=== PATIENT | female | born 1990 ===

== ENCOUNTER 2018-10-13 07:05 | Inpatient (IN) | payer OTHER ==
[~2018-10-13] VITALS: Ht 165.1 cm; Wt 68.0 kg
[2018-10-13] MEDS ORDERED: PRENATAL TABLE1 EAC2 PO (08:42)
== END 2018-10-14 08:04 | disposition home or self-care (01) | DRG 779 ==
LOC: LDR 07:05
PROC: 10A07ZX Abortion of Products of Conception, Abortifacient, Via Natural or Artificial Opening (ICD-10-PCS; principal; 2018-10-13)
DX: Z33.2 Encounter for elective termination of pregnancy (principal)

== ENCOUNTER 2021-07-18 13:36 | Outpatient (CLI) | payer OTHER ==
[~2021-07-18 13:36] MED LIST: PRENATAL TABLE1 EAC2 PO
== END 2021-07-18 14:36 | disposition home or self-care (01) ==
LOC: PRENATAL 13:36
PROVIDERS: ATTEND Obstetrics & Gynecology Maternal & Fetal Medicine
DX: Z36.89 Encounter for other specified antenatal screening (principal); O36.80X1 Pregnancy with inconclusive fetal viability, fetus 1; Z3A.13 13 weeks gestation of pregnancy

== ENCOUNTER 2021-08-26 18:22 | Emergency (ER) | payer OTHER ==
[~2021-08-26] VITALS: Ht 162.6 cm; Wt 65.8 kg
== END 2021-08-26 21:48 | disposition home or self-care (01) ==
LOC: ER 18:22
DX: O26.892 Other specified pregnancy related conditions, second trimester (principal); N89.8 Other specified noninflammatory disorders of vagina; R10.2 Pelvic and perineal pain; Z3A.18 18 weeks gestation of pregnancy

== ENCOUNTER 2021-09-08 08:09 | Outpatient (CLI) | payer OTHER | END 2021-09-08 09:30 | disposition home or self-care (01) | LOC: PRENATAL 08:09 | PROVIDERS: ATTEND Obstetrics & Gynecology Maternal & Fetal Medicine | DX: O35.0XX1 Maternal care for (suspected) central nervous system malformation in fetus, fetus 1 (principal); O35.3XX1 Maternal care for (suspected) damage to fetus from viral disease in mother, fetus 1; O98.512 Other viral diseases complicating pregnancy, second trimester; O99.891 Other specified diseases and conditions complicating pregnancy; Z36.89 Encounter for other specified antenatal screening; Z3A.20 20 weeks gestation of pregnancy ==

== ENCOUNTER 2021-09-12 13:51 | Outpatient (CLI) | payer OTHER ==
[2021-09-12] MEDS ORDERED: OBSTETRIX (15:08)
== END 2021-09-13 15:30 | disposition home or self-care (01) ==
LOC: OBS/DEL 13:51
PROVIDERS: ATTEND Obstetrics & Gynecology
DX: O26.842 Uterine size-date discrepancy, second trimester (principal); O60.02 Preterm labor without delivery, second trimester; O26.892 Other specified pregnancy related conditions, second trimester; R10.2 Pelvic and perineal pain; Z3A.20 20 weeks gestation of pregnancy

== ENCOUNTER 2022-01-14 19:43 | Inpatient (IN) | payer OTHER ==
[~2022-01-14] VITALS: Ht 165.1 cm; Wt 89.4 kg
[~2022-01-14 19:43] MED LIST changes: +OBSTETRIX
[2022-01-14] MEDS ORDERED: PRENATAL TABLE1 EAC1 PO (20:52)
== END 2022-01-17 12:24 | disposition home or self-care (01) | DRG 807 ==
LOC: OBS/DEL 19:43 → SURG-SUITE 01-15 02:03 → LDR 01-15 02:03 → SURG-SUITE 01-15 08:55
PROVIDERS: ADMIT Obstetrics & Gynecology; ATTEND Obstetrics & Gynecology
PROC: 10E0XZZ Delivery of Products of Conception, External Approach (ICD-10-PCS; principal; 2022-01-15)
PROC: 4A1HXCZ Monitoring of Products of Conception, Cardiac Rate, External Approach (ICD-10-PCS; 2022-01-16)
PROC: 0HQ9XZZ Repair Perineum Skin, External Approach (ICD-10-PCS; 2022-01-16)
DX: O70.0 First degree perineal laceration during delivery (principal); Z37.0 Single live birth; Z3A.38 38 weeks gestation of pregnancy; Z20.822 Contact with and (suspected) exposure to COVID-19

== ENCOUNTER 2023-04-18 07:55 | Outpatient (CLI) | payer OTHER ==
[~2023-04-18 07:55] MED LIST changes: +PRENATAL TABLE1 EAC1 PO
== END 2023-04-18 09:20 | disposition home or self-care (01) ==
LOC: PRENATAL 07:55
PROVIDERS: ATTEND Obstetrics & Gynecology Maternal & Fetal Medicine
DX: O35.9XX0 Maternal care for (suspected) fetal abnormality and damage, unspecified, not applicable or unspecified (principal); O35.3XX0 Maternal care for (suspected) damage to fetus from viral disease in mother, not applicable or unspecified; O99.280 Endocrine, nutritional and metabolic diseases complicating pregnancy, unspecified trimester; Z3A.19 19 weeks gestation of pregnancy

== ENCOUNTER 2023-05-23 08:47 | Outpatient (CLI) | payer OTHER | END 2023-05-23 12:06 | disposition home or self-care (01) | LOC: PRENATAL 08:47 | PROVIDERS: ATTEND Obstetrics & Gynecology Maternal & Fetal Medicine | DX: O26.849 Uterine size-date discrepancy, unspecified trimester (principal); O99.280 Endocrine, nutritional and metabolic diseases complicating pregnancy, unspecified trimester; O09.219 Supervision of pregnancy with history of pre-term labor, unspecified trimester; Z3A.24 24 weeks gestation of pregnancy ==

== ENCOUNTER 2023-07-23 14:17 | Outpatient (CLI) | payer OTHER | END 2023-07-23 17:19 | disposition home or self-care (01) | LOC: PRENATAL 14:17 | PROVIDERS: ATTEND Obstetrics & Gynecology Maternal & Fetal Medicine | DX: O26.849 Uterine size-date discrepancy, unspecified trimester (principal); O36.8199 Decreased fetal movements, unspecified trimester, other fetus; O28.3 Abnormal ultrasonic finding on antenatal screening of mother; O99.280 Endocrine, nutritional and metabolic diseases complicating pregnancy, unspecified trimester; Z3A.33 33 weeks gestation of pregnancy ==